=== PATIENT | female | born 1965 | race Caucasian/White ===

== ENCOUNTER → 2016-12-15 | Outpatient (CLI) | payer OTHER ==
[~2016-12-15] MED LIST: CITA40TA12 PO; FURO20TA3 PO; IBUP200C9 PO; INFL100V IV; LEVO112T4 PO; LORA10TA68 PO; METH2.5T PO; OMEG100021 PO; OSPE60TA2 PO; OXYC-323 PO; PRED1TAB3 PO; QUIN20TA17 PO
[2016-12-15 14:57] LABS: BASO # 0.1 x10^3/uL (0.0-0.2); BASO % 1 % (0-3); EOS % 2 % (0-3); HEMATOCRIT 39.5 % (36.0-47.0); HEMOGLOBIN 13.2 g/dL (12.0-15.5); LYMPH # 4.9 x10^3/uL (1.0-4.8); LYMPH % 57 % (24-48); MEAN CORPUSCULAR HEMOGLOBIN 32 pg (25-35); MEAN CORPUSCULAR HGB CONC 34 g/dL (31-37); MEAN CORPUSCULAR VOLUME 95 fL (79-100); MONO % 7 % (0-9); NEUT % 33 % (31-73); PLATELET COUNT 208 x10^3/uL (140-400); RED BLOOD COUNT 4.15 x10^6/uL (3.50-5.40); RED CELL DISTRIBUTION WIDTH 13.2 % (11.5-14.5); WHITE BLOOD COUNT 8.6 x10^3/uL (4.0-11.0)
[2016-12-15 15:15] LABS: CALCIUM 9.6 mg/dL (8.5-10.1); CREATININE 0.7 mg/dL (0.6-1.0); GFR 88.2; POTASSIUM 4.1 mmol/L (3.5-5.1)
[2016-12-15 15:22] LABS: ALBUMIN 3.8 g/dL (3.4-5.0); TOTAL BILIRUBIN 0.2 mg/dL (0.2-1.0)
== END | disposition home or self-care (01) ==
LOC: SURGPAT 13:30
PROVIDERS: ATTEND Surgery
DX: K82.8 Other specified diseases of gallbladder (principal); Z90.49 Acquired absence of other specified parts of digestive tract
CPT/HCPCS: 36415; 80048; 82040; 82247; 85025

== ENCOUNTER → 2016-12-22 | Day surgery (SDC) | payer OTHER ==
[~2016-12-22] VITALS: Ht 153.7 cm; Wt 74.8 kg
[~2016-12-22] MED LIST changes: +BUPIVACAINE-EPI 0.5%-1:200000 50 ML VIAL. ONE; +DEXAMETHASONE SOD PHOS 20 MG/5 ML VIAL. ONE; +GLUCAGON,HUMAN RECOMBINANT 1 MG/ML VIAL. ONE; +GLYCOPYRROLATE 1 MG/5 ML VIAL. ONE; +HYDROmorphone 2 MG/ML VIAL IV PRN; +IOHEXOL 300 MG/ML 50 ML VIAL. ONE; +IV RINGERS,LACTATED 1000ML 1,000 ML IV SCH; +LIDOCAINE 1% PF 2 ML VIAL. ID PRN; +LIDOCAINE 2% PF Vial for OR 5 ML VIAL. ONE; +MIDAZOLAM HCL/PF 2 MG/2 ML VIAL. ONE; +MORPHINE SULFATE 2 MG/ML DISP.SYRIN. IV PRN; +NEOSTIGMINE METHYLSULFATE 5 MG/5 ML SYRINGE. ONE; +ONDANSETRON PF 4 MG/2 ML VIAL. IV PRN; +ONDANSETRON PF 4 MG/2 ML VIAL. ONE; +PROCHLORPERAZINE 10 MG/2 ML VIAL. IV PRN; +PROPOFOL 20 ML IV ONE; +ROCURONIUM 100 MG/10 ML VIAL. ONE; +SEVOFLURANE 61 TO 120 MINUTES. IH ONE; +SURGICEL HEMOSTAT 4X8 EACH. ONE; +fentaNYL PF VIAL 100 MCG/2 ML VIAL IV PRN; +fentaNYL PF VIAL 250 MCG/5 ML VIAL ONE; +oxyCODONE/APAP 5/325 1 TAB TABLET PO ONE
--- NOTE | 2016-12-22 08:44 | RAD ---
Indication intraoperative cholangiogram. Protocol study. Assess for potential complications. Assess for anatomic variants. Evaluate for choledocholithiasis. For members of the Department of surgery fluoroscopy was provided. 2 fluoroscopic spot images were obtained. The fluoroscopy time has been indicated as 0.9 minutes. Those intrahepatic radicles which are seen appear normal. No filling defects are identified. There is no evidence of choledocholithiasis. Contrast flows unremarkably into the duodenum. IMPRESSION: Normal intraoperative cholangiogram
--- NOTE | 2016-12-22 09:29 | OP ---
DATE OF SURGERY: 12/22/2016 PREOPERATIVE DIAGNOSIS: Biliary dyskinesia. POSTOPERATIVE DIAGNOSIS: Biliary dyskinesia. PROCEDURE: Laparoscopic cholecystectomy with cholangiograms. SURGEON: Devin Carr MD. OPERATOR AUTOMATED PROCESS: BRAD Mccracken. ANESTHESIA: General endotracheal. ESTIMATED BLOOD LOSS: 25 mL. INTRAVENOUS FLUIDS: 900 mL. INDICATIONS: The patient is a 51-year-old with distention after meals. GI evaluation showed an ejection fraction of 13%. She is here for cholecystectomy. OPERATIVE FINDINGS: The liver was smooth and sharp. The gallbladder was supple. Cholangiograms were normal. Visual inspection of the remainder of the abdomen failed to reveal obvious abnormalities. DESCRIPTION OF PROCEDURE: The patient was brought to the operating suite, given a general endotracheal anesthetic and the abdomen was prepped and draped in usual sterile fashion. An infraumbilical incision was infiltrated with local anesthetic, incised and a 5 mm Visiport used to gain access into the abdominal cavity, taking care to avoid injury to abdominal contents. Pneumoperitoneum was established. Camera inserted and inspection carried out with results as noted above. With the table in reverse Trendelenburg rolled to left, the epigastric and midclavicular ports were placed under direct vision. The lateral port location was used for an "alligator" grasper. The gallbladder was retracted superolaterally and the cystic duct and cystic artery were exposed. The cystic duct was clipped on the gallbladder side. Cholangiograms were made. These were normal. In light of this, the catheter was removed. The cystic duct was clipped x 3 and divided, taking care to avoid injury or compromise of the common duct. The cystic artery was then clipped and divided and the gallbladder freed from the bed with cautery dissection and placed in an EndoCatch bag. Hemostasis obtained in the fossa with cautery and a small piece of Surgicel and FloSeal. A 19-Thai round Kennedy drain was brought through a lateral stab wound, left in the subhepatic space for postoperative drainage. Table returned to level. Gallbladder delivered through the epigastric incision. Epigastric incision closed with interrupted 0 Vicryl suture. Intra-abdominal pressure decreased to 6 cm of water. No bleeding from the epigastric closure or from the midclavicular port site or from the liver bed was seen. No bleeding around the drain. Abdomen decompressed, camera slowly removed, no bleeding seen. Skin incisions were closed with subcuticular 4-0 Monocryl. Steri-Strips and sterile dressings applied. The patient was awakened from her anesthetic and taken to the recovery room in satisfactory condition. DEVIN CARR MD DR: Aron JOB#: [id number] / [id number]
--- NOTE | 2016-12-22 09:48 | DISCH ---
DISCHARGE INSTRUCTIONS Condition on Discharge Condition on Discharge: Stable Activity After Discharge Activity Instructions for Disc: Activity as tolerated, Avoid exertion Lifting Instructions after Dis: No heavy lifting Diet after Discharge Diet after Discharge: Regular Wound Incision Care Wound/Incision Care: Ice to area for comfort Other wound/incision instructi: lisa shower Thursday Follow-Up Follow up with: Mike end of the week LLUVIA CARR MD Dec 22, 2016 09:48
[2016-12-22 11:05] VITALS: BP 111/57
--- NOTE | 2016-12-23 14:42 | PATHOLOGY ---
PATHOLOGY REPORT * * * * * * * * FINAL DIAGNOSIS: Gallbladder, laparoscopic cholecystectomy: - Cholesterolosis, focal. - Chronic cholecystitis. COMMENT: There are no calculi identified within the gallbladder lumen or specimen container. There is no evidence of malignancy. (JPM:mgamira; 12/23/2016) REPORT ELECTRONICALLY SIGNED BY: Shahid Alcantara M.D. DATE/TIME: 12/23/2016 14:41 * * * * * * * * GROSS PATHOLOGY: Received in formalin labeled "Ashleigh Buckley, gallbladder and contents," is a 6.2 x 2.3 x 1.5 cm, previously punctured gallbladder with dark blue to purple, vascular, and wrinkled serosal surfaces. Opening the gallbladder reveals dark lyon, velvety mucosa and an average wall thickness of 0.2 cm. Calculi are not present and no masses are noted grossly. Corset Fitter sections from the body and fundus are submitted along with the proximal margin in cassette A1. (TSD; 12/22/2016) INITIAL CPT CODE(S): A; 75286 Professional services performed by [facility] [place] [address] Technical services performed by [facility] at [address] [place] [address], [facility] [address] [address]. SPECIMEN(S) RECEIVED: A.Gallbladder and its contents CLINICAL HISTORY: Biliary dyskinesia PATIENT: ASHLEIGH BUCKLEY /AGE: 810/15/1965 (Age: 51) PATIENT #: [id number] ALT CASE #: SPECIMEN COLLECTION DATE: 12/22/2016 SPECIMEN RECEIVED DATE: 12/22/2016 [facility] - [address] [place] [address] - PHONE: [phone] * * * END OF REPORT * * *
== END | disposition home or self-care (01) ==
LOC: SURG 06:41
PROVIDERS: ATTEND Surgery
DX: K82.8 Other specified diseases of gallbladder (principal); K81.1 Chronic cholecystitis; I10 Essential (primary) hypertension; E66.9 Obesity, unspecified; Z68.31 Body mass index [BMI] 31.0-31.9, adult; E03.9 Hypothyroidism, unspecified; F41.9 Anxiety disorder, unspecified; F32.9 Major depressive disorder, single episode, unspecified; Z98.890 Other specified postprocedural states; Z90.710 Acquired absence of both cervix and uterus; Z86.39 Personal history of other endocrine, nutritional and metabolic disease
CPT/HCPCS: 47563; 74300; J0690; J0780; J1100; J2250; J2405; J2704; J2710; J3010; J3490; J7030; Q9967; 88304; J1610; J2001